=== PATIENT | male | born 1995 | race Caucasian/White ===

== ENCOUNTER 2022-01-13 21:54 | Emergency (ER) | payer SELFPAY ==
[2022-01-13 22:03] VITALS: BP 166/85; PULSE 66; RESP 18; TEMP 36.3; O2SAT 96
[2022-01-13 22:38] LABS: Add Manual Diff / Slide Review NO; Basophils Absolute Auto 100 /uL (0-100); Basophils Percent Auto 1.1 % (0-2); Eosinophils Absolute Auto 200 /uL (0-450); Eosinophils Percent Auto 2.8 % (2-4); Hematocrit 41.1 % (41-53); Hemoglobin 14.2 g/dL (13.5-17.5); Lymphocytes Absolute Auto 1900 /uL (1100-4500); Lymphocytes Percent Auto 28.4 % (25-40); Mean Corpuscular HGB Conc 34.6 % (30-36); Mean Corpuscular Hemoglobin 30.8 PG (26-34); Mean Corpuscular Volume 89.2 fL (80-100); Monocytes Absolute Auto 500 /uL (0-900); Monocytes Percent Auto 7.9 % (3-14); Neutrophils Absolute Auto 4000 /uL (1500-7000); Neutrophils Percent Auto 59.8 % (50-75); Platelet Count 284 X10^3/uL (150-400); Red Blood Cell Count 4.61 X10^6/uL (4.5-5.9); Red Cell Distribution Width 13.3 % (11.6-14.8); White Blood Cell Count 6.6 X10^3/uL (4.5-11.0)
[2022-01-13 22:48] LABS: Alanine Aminotransferase 25 IU/L (<50); Albumin 4.8 g/dL (3.5-5.0); Albumin Globulin Ratio 1.7 (1.0-2.8); Alkaline Phosphatase 66 U/L (38-126); Aspartate Aminotransferase 33 IU/L (17-59); BUN Creatinine Ratio 17.4 (6-22); Bilirubin Total 0.6 mg/dL (0.2-1.3); Blood Urea Nitrogen 15 mg/dL (9-20); Calcium 9.4 mg/dL (8.4-10.2); Carbon Dioxide 30 mmol/L (22-32); Chloride 94 mmol/L (98-107); Estimated Glomerular Filt Rate > 60.0 mL/min (>60); Globulin 2.9 g/dL (1.7-4.1); Glucose 457 mg/dL (70-100); HEMOLYSIS 45 (0-50); Lipase 54 U/L (23-300); Potassium 4.3 mmol/L (3.4-5.1); Sodium 134 mmol/L (137-145); Total Protein 7.7 g/dL (6.3-8.2)
--- NOTE | 2022-01-14 00:10 | DI.CT.S_ITS ---
PROCEDURE: CT ABDOMEN PELVIS W CON INDICATIONS: lower abdominal pain TECHNIQUE: After the administration of intravenous contrast, axial sections acquired from the lung bases to the pubic symphysis. Coronal and sagittal reformats were performed. For radiation dose reduction, the following was used: automated exposure control, adjustment of mA and/or kV according to patient size. COMPARISON: [facility], CT, CT ABDOMEN PELVIS WITH CONTRAST, 09/29/2021, 21:48. FINDINGS: Image quality: Excellent. Lung bases: Unremarkable. Heart: No significant findings. ABDOMEN: Liver: Unremarkable. Gallbladder: Is contracted Biliary ducts: Unremarkable. Pancreas: Unremarkable. Spleen: Unremarkable. Adrenal Glands: Unremarkable. Kidneys and Ureters: Unremarkable. Stomach and Bowel: Stomach is within normal limits. Multiple mildly distended fluid-filled small bowel loops throughout the abdomen. Appendix is normal. Colon demonstrates moderate diffuse stool and is otherwise within normal limits. Peritoneum: No abnormal intraperitoneal fluid. No free air. Ventral Wall: No hernias. Abdominal Nodes: No retroperitoneal or mesenteric adenopathy by size criteria. Multiple mildly prominent subcentimeter mesenteric lymph nodes. Vessels: Aorta and inferior vena cava are normal in size. PELVIS: Pelvic Organs: Unremarkable. Bladder: Unremarkable. Pelvic Nodes: No enlarged lymph nodes. Miscellaneous: No hernias are seen. Bones: Chronic irregularity of the interior 0 inferior L2 and anterosuperior L4 vertebral bodies, as before. IMPRESSION: 1. Findings suggestive of gastroenteritis. 2. Normal appendix. Dictated by: Blanca Aguirre M.D. on 01/14/2022 at 0:44 Approved by: Blanca Aguirre M.D. on 01/14/2022 at 0:46
--- NOTE | 2022-01-14 00:11 | ED.ABDPAIN ---
HPI - Abdominal Pain General Chief Complaint: Abdominal Pain Stated Complaint: abd pain NVD Time Seen by Provider: 01/13/22 23:42 Source: patient Mode of arrival: Ambulatory History of Present Illness HPI narrative: Patient here with partner, complaints 4 days of slow onset lower abdominal pain. Right greater than left. Has nausea but no vomiting. No urinary complaints no diarrhea. Feels the same had when he had this pain September 2021. Was admitted to the [facility], for possible intussusception. Had endoscopy of the stomach and colon that were unremarkable. Medical records faxed here. No other surgeries on the abdomen. Related Data Previous Rx's Medication Instructions Recorded dicyclomine 20 mg tablet 20 mg PO QID #20 tab 01/14/22 ondansetron 4 mg disintegrating 4 mg PO Q8H PRN #10 tab 01/14/22 tablet Review of Systems Review of Systems Narrative: GENERAL: Denies chills, fatigue, malaise, fever, sweats. HEENT: Denies sinus pain, ear pain, sore throat RESPIRATORY: Denies dyspnea, cough CARDIOVASCULAR: Denies chest pain, palpitations GASTROINTESTINAL: Positive fornausea, negative for vomiting, positive for abdominal pain : Denies dysuria, frequency, hematuria MUSCULOSKELETAL: denies muscle or bony pain SKIN: Denies rash, skin lesions NEUROLOGIC: Denies weakness, numbness ROS Unobtainable: All systems reviewed & are unremarkable except as noted in HPI and below Patient History Social History Smoking Status: Never smoker Smoking Status: Never smoker alcohol intake frequency: a few times a month Substance Use Type: does not use Exam Narrative Exam Narrative: GENERAL: in no distress, not toxic not dyspneic HEAD: Normocephalic. EYES: Pupils equal round No scleral icterus. ENT: Mucous membranes moist. NECK: Trachea midline. CARDIOVASCULAR: Regular rate and rhythm without murmurs RESPIRATORY: Clear to auscultation. Breath sounds equal bilaterally. No wheezes, rales, or rhonchi. GASTROINTESTINAL: Abdomen soft, bilateral lower abdominal tenderness but no peritoneal signs. No distention. Abdomen is flat. No palpable mass. Bowel sounds present EXTREMITIES: No gross deformities. NEURO: AOx4. SKIN: Warm and dry PSYCH: Not anxious, is cooperative Initial Vital Signs Initial Vital Signs: Vital Signs Temperature 97.3 F L 01/13/22 22:03 Pulse Rate 66 01/13/22 22:03 Respiratory Rate 18 01/13/22 22:03 Blood Pressure 166/85 H 01/13/22 22:03 Pulse Oximetry 96 01/13/22 22:03 Course Course Course Narrative: No new issues during course of stay Orders Ordered: ED Orders 01/13/22 22:10 Complete Blood Count AUTO DIFF Stat Comprehensive Metabolic Panel Stat Lipase Stat 01/13/22 22:21 EKG-12 Lead Stat 01/14/22 00:10 CT abdomen pelvis w con Stat Discontinued Medications Sodium Chloride (Normal Saline 0.9%) 1,000 mls @ 1,000 mls/hr IV BOLUS ONE Stop: 01/14/22 01:09 Last Infusion: 01/14/22 01:29 Dose: 0 mls/hr Documented by: Admin: 01/14/22 00:24 Dose: 1,000 mls/hr Documented by: ALICIA Morphine Sulfate (Morphine 4 Mg/Ml Inj) 4 mg IV NOW ONE Stop: 01/14/22 00:11 Last Admin: 01/14/22 00:42 Dose: 4 mg Documented by: DORINDA Ondansetron HCl (Ondansetron 4 Mg/2 Ml Inj) 4 mg IV NOW ONE Stop: 01/14/22 00:11 Last Admin: 01/14/22 00:24 Dose: 4 mg Documented by: ALICIA Reevaluation(s) Reevaluation #1: Patient resting comfortably with her spouse. Reviewed results with him. Return precautions as well. Prescriptions will be provided. Work note as well. He agrees with treatment plan Time: 01:12 Vital Signs Vital signs: Vital Signs - 8 hr 01/13/22 22:03 01/14/22 01:28 Temperature 97.3 F L Pulse Rate 66 72 Respiratory Rate 18 16 Blood Pressure 166/85 H 139/78 Pulse Oximetry 96 99 MDM - Abdominal Pain Differential Diagnosis Differential diagnosis: Likely abdominal pain, acute appendicitis, constipation, diverticulitis, gastroenteritis, pancreatitis and small bowel obstruction Lab Data Result diagrams: 01/13/22 22:10 01/13/22 22:10 Labs: Lab Results 01/13/22 01/13/22 Range/Units 22:10 22:10 WBC 6.6 (4.5-11.0) X10^3/uL RBC 4.61 (4.5-5.9) X10^6/uL Hgb 14.2 (13.5-17.5) g/dL Hct 41.1 (41-53) % MCV 89.2 (80-100) fL MCH 30.8 (26-34) PG MCHC 34.6 (30-36) % RDW 13.3 (11.6-14.8) % Plt Count 284 (150-400) X10^3/uL Neut % (Auto) 59.8 (50-75) % Lymph % (Auto) 28.4 (25-40) % [place] % (Auto) 7.9 (3-14) % Eos % (Auto) 2.8 (2-4) % Baso % (Auto) 1.1 (0-2) % Neut # (Auto) 4000 (9566-4098) /uL Lymph # (Auto) 1900 (6898-1712) /uL [place] # (Auto) 500 (0-900) /uL Eos # (Auto) 200 (0-450) /uL Baso # (Auto) 100 (0-100) /uL Sodium 134 L (137-145) mmol/L Potassium 4.3 (3.4-5.1) mmol/L Chloride 94 L (98-107) mmol/L Carbon Dioxide 30 (22-32) mmol/L BUN 15 (9-20) mg/dL Creatinine 0.86 (0.66-1.25) mg/dL Estimated GFR > 60.0 (>60) mL/min BUN/Creatinine Ratio 17.4 (6-22) Glucose 457 H (70-100) mg/dL Calcium 9.4 (8.4-10.2) mg/dL Total Bilirubin 0.6 (0.2-1.3) mg/dL AST 33 (17-59) IU/L ALT 25 (<50) IU/L Alkaline Phosphatase 66 (38-126) U/L Total Protein 7.7 (6.3-8.2) g/dL Albumin 4.8 (3.5-5.0) g/dL Globulin 2.9 (1.7-4.1) g/dL Albumin/Globulin Ratio 1.7 (1.0-2.8) Lipase 54 (23-300) U/L Point of care testing: Urine Dip Bedside Urine Glucose 1000 mg/dl Bedside Urine Bilirubin - Negative Bedside Urine Ketone - Negative Urine Specific [place] 1.010 Bedside Urine Occult Blood - Negative Bedside Urine pH 6.5 Bedside Urine Protein - Negative Bedside Urine Urobilinogen - Negative Bedside Urine Nitrite - Negative Bedside Urine Leukocytes - Negative Esterase Imaging Data CT scan - abdomen/pelvis: Radiologist's Impression: [address] [address] [address] Scan Report Signed Patient: Nicola Cortez MR#: [id number] : 1995 Acct:[id number] Age/Sex: 26 / M Date of Service: 01/14/22 Loc: ED Accession Number: [id number] ?? Procedure: CT abdomen pelvis w con Ordering Provider: Raphael Lynn MD PROCEDURE:? CT ABDOMEN PELVIS W CON ? INDICATIONS:? lower abdominal pain ? TECHNIQUE:? After the administration of intravenous contrast, axial sections acquired from the lung bases to the pubic symphysis.? Coronal and sagittal reformats were performed.? For radiation dose reduction, the following was used:? automated exposure control, adjustment of mA and/or kV according to patient size.? ? COMPARISON:? [facility], CT, CT ABDOMEN PELVIS WITH CONTRAST, 09/29/2021, 21:48. ? FINDINGS:? Image quality:? Excellent.? ? Lung bases:? Unremarkable. Heart:? No significant findings. ? ABDOMEN: Liver:? Unremarkable.? ? Gallbladder:? Is contracted? ? Biliary ducts:? Unremarkable.? ? Pancreas:? Unremarkable.? ? Spleen:? Unremarkable.? ? Adrenal Glands:? Unremarkable.? ? Kidneys and Ureters:? Unremarkable.? ? ? Stomach and Bowel:? Stomach is within normal limits.? Multiple mildly distended fluid-filled small bowel loops throughout the abdomen.? Appendix is normal.? Colon demonstrates moderate diffuse stool and is otherwise within normal limits. Peritoneum:? No abnormal intraperitoneal fluid.? No free air.? ? Ventral Wall: ? No hernias.? Abdominal Nodes:? No retroperitoneal or mesenteric adenopathy by size criteria.? Multiple mildly prominent subcentimeter mesenteric lymph nodes. Vessels:? Aorta and inferior vena cava are normal in size.? ? PELVIS: Pelvic Organs:? Unremarkable.? ? Bladder:? Unremarkable.? ? Pelvic Nodes: No enlarged lymph nodes.? Miscellaneous: No hernias are seen. ? ? ? Bones:? Chronic irregularity of the interior 0 inferior L2 and anterosuperior L4 vertebral bodies, as before. ? ? IMPRESSION:? 1. Findings suggestive of gastroenteritis. 2. Normal appendix. ? ? Dictated by: Blanca Aguirre M.D. on 01/14/2022 at 0:44 ? ? Approved by: Blanca Aguirre M.D. on 01/14/2022 at 0:46 ? MDM Narrative Medical decision making narrative: Appropriate for discharge home. Exam and laboratory studies and imaging otherwise reassuring. Return precautions reviewed patient. 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 Prescription for Bentyl and Zofran provided. Not toxic at discharge Discharge Plan Departure Patient Disposition: Home Clinical Impression: Gastroenteritis Instructions: Gastroenteritis Diet Activity Restrictions/Additional Instructions: No driving operating machinery tonight. See family doctor next week for recheck. Keep well hydrated. Return if worse if any questions or concerns Prescriptions: New ondansetron 4 mg tablet,disintegrating 4 mg PO Q8H PRN (Reason: nausea and vomiting) Qty: 10 0RF dicyclomine 20 mg tablet 20 mg PO QID Qty: 20 0RF Stand Alone Forms: Work Release Note
[2022-01-14] MEDS: SODIUM CHLORIDE 0.9% 1,000 ML 1000 ML IV (00:24)
[2022-01-14] MEDS: ONDANSETRON 4 MG/2 ML INJ IV (00:24)
[2022-01-14] MEDS: MORPHINE 4 MG/ML INJ IV (00:42)
[2022-01-14 01:28] VITALS: BP 139/78; PULSE 72; RESP 16; O2SAT 99
== END 2022-01-14 01:36 | disposition home or self-care (01) ==
PROVIDERS: Emergency Provider Emergency Medicine
DX: K52.9 Noninfective gastroenteritis and colitis, unspecified (principal)
CPT/HCPCS: 36415; 74177; 80053; 81003; 83690; 85025; 96361; 96374; 96375; 99284; J2270; J2405; Q9967